=== PATIENT | female | born 1965 | race Caucasian/White ===

== ENCOUNTER 2020-12-10 08:13 | Emergency (ER) | payer OTHER ==
[~2020-12-10] VITALS: Ht 165.1 cm; Wt 66.7 kg
== END 2020-12-10 15:27 | disposition home or self-care (01) ==
LOC: ER 08:13
DX: R10.9 Unspecified abdominal pain (principal); N39.0 Urinary tract infection, site not specified

== ENCOUNTER 2021-01-08 10:48 | Emergency (ER) | payer OTHER ==
[~2021-01-08] VITALS: Ht 165.1 cm; Wt 65.8 kg
[2021-01-08] MEDS ORDERED: MULTI VITAMIN1 EACH PO (11:01)
[2021-01-08] MEDS ORDERED: PROTONIX20 MG PO (17:53)
[2021-01-08] MEDS ORDERED: INTESTINEX680 M2 PO (17:53)
[2021-01-08] MEDS ORDERED: PEPCID AC20 MG PO (17:53)
[2021-01-08] MEDS ORDERED: CIPROFLOXACIN500 MG PO (17:53)
[2021-01-08] MEDS ORDERED: METRONIDAZOLE500 MG PO (17:53)
[2021-01-08] MEDS ORDERED: ULTRAM50 MG PO (17:53)
[2021-01-08] MEDS ORDERED: LEVSIN0.125 MG PO (17:53)
== END 2021-01-08 17:58 | disposition home or self-care (01) ==
LOC: ER 10:48
DX: K57.32 Diverticulitis of large intestine without perforation or abscess without bleeding (principal); R10.32 Left lower quadrant pain; Z03.818 Encounter for observation for suspected exposure to other biological agents ruled out

== ENCOUNTER 2021-06-02 05:30 | Day surgery (SDC) | payer OTHER ==
[~2021-06-02 05:30] MED LIST: CIPROFLOXACIN500 MG PO; INTESTINEX680 M2 PO; LEVSIN0.125 MG PO; METRONIDAZOLE500 MG PO; MULTI VITAMIN1 EACH PO; PEPCID AC20 MG PO; PROTONIX20 MG PO; ULTRAM50 MG PO
== END 2021-06-02 12:00 | disposition home or self-care (01) ==
LOC: AMB-ENDOS 05:30
PROVIDERS: ATTEND Internal Medicine Gastroenterology
DX: D12.4 Benign neoplasm of descending colon (principal); D12.7 Benign neoplasm of rectosigmoid junction; Z88.6 Allergy status to analgesic agent; E16.2 Hypoglycemia, unspecified; E78.5 Hyperlipidemia, unspecified

== ENCOUNTER 2021-06-17 18:11 | Emergency (ER) | payer OTHER ==
[~2021-06-17] VITALS: Ht 165.1 cm; Wt 63.5 kg
[2021-06-17] MEDS ORDERED: METRONIDAZOLE500 MG (18:33)
[2021-06-17] MEDS ORDERED: ULTRAM50 MG (18:33)
[2021-06-17] MEDS ORDERED: CIPRO500 MG (18:35)
== END 2021-06-18 01:05 | disposition home or self-care (01) ==
LOC: ER 18:11
DX: R10.84 Generalized abdominal pain (principal); Z88.6 Allergy status to analgesic agent

== ENCOUNTER 2021-07-22 15:05 | Inpatient (IN) | payer OTHER ==
[~2021-07-22] VITALS: Ht 167.6 cm; Wt 81.6 kg
[~2021-07-22 15:05] MED LIST changes: +CIPRO500 MG; +METRONIDAZOLE500 MG; +ULTRAM50 MG
[2021-07-22] MEDS ORDERED: PROTONIX20 MG PO (15:20)
[2021-07-23] MEDS ORDERED: FAMOTIDINE20 MG (15:30)
[2021-07-26] MEDS ORDERED: CIPRO500 MG PO (13:56)
[2021-07-26] MEDS ORDERED: METRONIDAZOLE500 MG PO (13:56)
[2021-07-26] MEDS ORDERED: INTESTINEX680 M1 PO (13:57)
[2021-07-26] MEDS ORDERED: PEPCID AC20 MG PO (13:57)
[2021-07-26] MEDS ORDERED: PANTOPRAZOLE SO40 MG PO (13:57)
== END 2021-07-26 15:48 | disposition home or self-care (01) | DRG 392 ==
LOC: ER 15:05 → SEC-K 07-23 09:08 → MEDI 07-23 09:08
PROVIDERS: ADMIT Internal Medicine; ATTEND Internal Medicine
PROC: BW21YZZ Computerized Tomography (CT Scan) of Abdomen and Pelvis using Other Contrast (ICD-10-PCS; principal; 2021-07-22)
DX: K57.32 Diverticulitis of large intestine without perforation or abscess without bleeding (principal); K63.5 Polyp of colon; E86.0 Dehydration; Z20.822 Contact with and (suspected) exposure to COVID-19